=== PATIENT | male | born 1985 | race American Indian/Alaskan Native ===

== ENCOUNTER 2017-05-07 01:35 | Emergency (ER) | payer MEDICAID ==
--- NOTE | 2017-05-07 02:16 | C.PDOC ---
History Of Present Illness 32 year old male presents to the ER with a complaint of pain to the right hand after he punched the wall approximately 1 hour [employer]. Denies weakness or numbness or the hand. Chief Complaint (Nursing): Finger,Hand,&Wrist History Per: Patient History/Exam Limitations: no limitations Onset/Duration Of Symptoms: Hrs Current Symptoms Are (Timing): Still Present Exacerbating Factor(s): Strenuous Use Of Affected Area Recent travel outside of the [place]: No Past Medical History Reviewed: Historical Data, Nursing Documentation, Vital Signs Vital Signs: Last Vital Signs Temp 98 F 05/07/17 03:07 Pulse 80 05/07/17 03:07 Resp 18 05/07/17 03:07 BP 124/92 H 05/07/17 03:07 Pulse Ox 99 05/07/17 03:07 - Medical History PMH: Fractures (nose, jaw) Surgical History: No Surg Hx Family History: States: Unknown Family Hx - Social History Hx Alcohol Use: Yes Hx Substance Use: No Review Of Systems Musculoskeletal: Positive for: Hand Pain Neurological: Negative for: Weakness, Numbness Physical Exam - Physical Exam Appears: Non-toxic, No Acute Distress Skin: Normal Color, Warm, Dry Head: Atraumatic, Normacephalic Extremity: Tenderness (5th digit of right hand), Capillary Refill (<2 seconds) Pulses: Left Radial: Normal, Right Radial: Normal Neurological/Psych: Oriented x3, Normal Speech, Normal Motor, Normal Sensation ED Course And Treatment O2 Sat by Pulse Oximetry: 97 (Room air) Pulse Ox Interpretation: Normal - Other Rad Right hand x-ray X-Ray: Interpreted by Me, Viewed By Me Interpretation: Boxer's fracture Medical Decision Making Medical Decision Making: Right hand x-ray ordered. Tylenol administered. Reduction of boxer's fracture performed, patient placed in OCL splint. Disposition - Disposition Disposition: HOME/ ROUTINE Disposition Time: 02:49 Condition: GOOD Instructions: Hand Fracture (ED) Forms: [facility] (Kittitian) Print Language: INDONESIAN - Clinical Impression Clinical Impression: Boxers fracture - Scribe Statement The provider has reviewed the documentation as recorded by the Scribe Mustapha Clark All medical record entries made by the Scribe were at my direction and personally dictated by me. I have reviewed the chart and agree that the record accurately reflects my personal performance of the history, physical exam, medical decision making, and the department course for this patient. I have also personally directed, reviewed, and agree with the discharge instructions and disposition.
[2017-05-07 03:20] VITALS: BP 124/92; PULSE 80; RESP 18; TEMP 98
[2017-05-07 05:57] VITALS: O2SAT 97
--- NOTE | 2017-05-07 11:49 | RAD ---
PROCEDURE: Right Hand Radiographs. HISTORY: trauma COMPARISON: None. FINDINGS: BONES: A boxer's fracture of the distal 5th metacarpal bone is appreciated with the major distal fracture fragment angles anteriorly and mildly impacted. Local soft tissue edema is suspected. No definite dislocation. Remaining osseous elements of the right hand appear diffusely unremarkable although. JOINTS: Normal. No osteoarthritic changes. OTHER FINDINGS: None. IMPRESSION: Boxer's fracture 5th metacarpal bone without dislocation.
== END 2017-05-07 03:19 | disposition home or self-care (01) ==
LOC: C.ER 01:35
DX: S62.396A Other fracture of fifth metacarpal bone, right hand, initial encounter for closed fracture (principal); W22.01XA Walked into wall, initial encounter